=== PATIENT | male | born 1970 | race Caucasian/White ===

== ENCOUNTER 2017-08-04 14:28 | Outpatient (CLI) | payer OTHER | END 2017-08-04 14:29 | disposition home or self-care (01) | LOC: BICMRI 14:28 | PROVIDERS: ATTEND Family Medicine | DX: M54.6 Pain in thoracic spine (principal); M47.894 Other spondylosis, thoracic region; M51.24 Other intervertebral disc displacement, thoracic region; M51.84 Other intervertebral disc disorders, thoracic region | CPT/HCPCS: 72072; 72146 ==

== ENCOUNTER 2017-08-25 14:26 | Outpatient (CLI) | payer OTHER | END 2017-08-25 14:27 | disposition home or self-care (01) | LOC: BICMRI 14:26 | PROVIDERS: ATTEND Family Medicine | DX: M25.511 Pain in right shoulder (principal); M75.101 Unspecified rotator cuff tear or rupture of right shoulder, not specified as traumatic; M19.011 Primary osteoarthritis, right shoulder ==

== ENCOUNTER 2023-10-31 10:32 | Outpatient (CLI) | payer OTHER | END 2023-10-31 10:33 | disposition home or self-care (01) | LOC: SCSMRI 10:32 | PROVIDERS: ATTEND Family Medicine | DX: R51.9 Headache, unspecified (principal); R90.89 Other abnormal findings on diagnostic imaging of central nervous system | CPT/HCPCS: 70551 ==